=== PATIENT | female | born 1975 | race African-American/Black ===

== ENCOUNTER 2019-10-15 17:02 | Emergency (ER) | payer SELFPAY ==
[~2019-10-15] VITALS: Ht 152.4 cm; Wt 90.9 kg
[~2019-10-15 17:02] MED LIST: ALPR0.254 PO; DIPH25CA58 PO
--- NOTE | 2019-10-15 17:22 | PHYS DOC ---
Past History Past Medical History: Anemia, Anxiety, Other Past Surgical History: Tonsillectomy Alcohol Use: None Drug Use: None General Adult HPI: HPI: "..I ve been having bad periods.. and eventually I started using a cup...but I cut the tip off...and now I can't get it out..." Patient is a 43 year old female who presents with above hx and complaints of retained cervical cup she was using to collect menstruation. Patient modified the plastic cup by cutting off the retraction tip. Now the object has become stuck and inverted. Patient is complaining of increased abdomen pain. Patient gives a history of increased vaginal bleeding. Patient also giving a history of problems with defecation and urination. Patient gives history of increased fatigue. Patient does not follow-up with her primary care. Patient denies any history of STDs. Has had only only 2 sex partners in her life. Patient complains of generalized abdomen discomfort. Patient denies any trauma. No recent travel. No specific ill contacts. Review of Systems: Review of Systems: Constitutional: Denies fever or chills . Complains of increased fatigue Eyes: Denies change in visual acuity HENT: Denies nasal congestion or sore throat Respiratory: Denies cough or shortness of breath Cardiovascular: Denies chest pain or edema GI: Complains of abdominal pain, nausea,. Complains of constipation. Denies vomiting, bloody stools or diarrhea . Complains of retained foreign body in vaginal area. : Complains of frequent small urinations Musculoskeletal: Denies back pain or joint pain Integument: Denies rash Neurologic: Denies headache, focal weakness or sensory changes Endocrine: Denies polyuria or polydipsia Lymphatic: Denies swollen glands Psychiatric: Denies depression or anxiety Heart Score: HEART Score for Chest Pain: HEART Score for Chest Pain Response (Comments) Value History Slighlty/Non-Suspicious 0 ECG Nonspecific Repolarizatio 1 Age < 45 0 Risk Factors 1 or 2 Risk Factors 1 Troponin < Normal Limit 0 Total 2 Risk Factors: Risk Factors: DM, Current or recent (<one month) smoker, HTN, HLP, family his tory of CAD, obesity. Risk Scores: Score 0 - 3: 2.5% MACE over next 6 weeks - Discharge Home Score 4 - 6: 20.3% MACE over next 6 weeks - Admit for Clinical Observation Score 7 - 10: 72.7% MACE over next 6 weeks - Early Invasive Strategies Family History: Family History: Noncontributory Current Medications: Current Meds: See nursing for home meds Allergies: Allergies: Allergies Coded Allergies Type Severity Reaction Last Updated Verified No Known Drug Allergies 09/15/14 No Physical Exam: PE: Constitutional: Moderate acute distress, non-toxic appearance. [] HENT: Normocephalic, atraumatic, bilateral external ears normal, oropharynx moist, no oral exudates, nose normal. [] Eyes: PERRLA, EOMI, conjunctiva pale, no discharge. [] Neck: Normal range of motion, no tenderness, supple, no stridor. [] Cardiovascular: Tachycardia heart rate regular rhythm, no murmur [] Lungs & Thorax: Bilateral breath sounds equal apex on auscultation . Bibasilar crackles Abdomen: Bowel sounds decreased , soft, generalized abdomen tenderness, obvious large masses, no pulsatile masses. Distended. Rebound pain in the lower pelvic area. On pelvic exam patient had obvious mass pressing onto pelvic floor. Had a retained blue plastic cervical cup. Patient had obvious vaginal distortion. Cultures were taken. Eventually the plastic cervical cup was retrieved by forceps. Rectal exam minimal stool. Skin: Warm, dry, no erythema, no rash. Pale. Multiple small scarred areas from microtrauma Back: No tenderness, no CVA tenderness. [] Extremities: No tenderness, no cyanosis, no clubbing, ROM intact, no edema. Mild bilateral psoas sign Neurologic: Alert and oriented X 3, normal motor function, normal sensory function, no focal deficits noted. [] Psychologic: Affect anxious, judgement normal, mood normal. [] EKG: EKG: My interpretation EKG shows a sinus tachycardia 107 bpm. No findings of acute STEMI or contralateral changes [] Radiology/Procedures: Radiology/Procedures: [][address] [address] IMAGING REPORT Signed PATIENT: SHILPA DICK ACCOUNT: [id number] : 1975 LOCATION: ER AGE: 43 SEX: F EXAM STATUS: REG ER ORD. PHYSICIAN: AMANUEL BROWN MD REASON: Pelvic discomfort, vaginal foreign body, possibly period cup PROCEDURE: CT ABDOMEN PELVIS WO CONTRAST CT abdomen pelvis without contrast dated 10/15/2019. No comparison available. CLINICAL INDICATION: Pelvic discomfort and vaginal foreign body. TECHNIQUE: Contiguous axial imaging the abdomen pelvis performed without the administration of IV or oral contrast. One or more of the following individualized dose reduction techniques were utilized for this examination: 1. Automated exposure control 2. Adjustment of the mA and/or kV according to patient size 3. Use of iterative reconstruction technique FINDINGS: Marked heterogeneous nodular enlargement of the uterus which measures approximately 16.5 x 24.9 x 28.4 cm there are scattered calcifications with areas of nodularity throughout. No infiltrative margins are noted. Uterus compresses the urinary bladder anteriorly. The cervix is also displaced anteriorly. No definite foreign body. Limited images of lung bases are clear. Heart size within normal limits. No pleural or pericardial effusion. Solid abdominal viscera not well evaluated in the absence of contrast material. No apparent attenuation abnormality of the liver or spleen. Pancreas, adrenal glands and kidneys are unremarkable. No stone or hydronephrosis. Gallbladder unremarkable. Unopacified GI tract normal in caliber and contour. No focal bowel wall thickening. No inflammatory stranding in the mesentery. The appendix is normal in caliber. No ascites. No retroperitoneal lymphadenopathy. There are mildly enlarged bilateral iliac chain and inguinal lymph nodes measuring up to 1.2 cm short axis. Bone windows show no acute findings. IMPRESSION: 1. Massive fibroid uterus. No definite evidence for underlying malignancy, although this cannot be completely excluded. Surgical consultation and/or continued follow-up imaging to ensure stability. 2. Mild pelvic lymphadenopathy, nonspecific. 3. Otherwise no acute findings. Electronically signed by: Aries Carballo MD (10/15/2019 7:52 PM) [facility] [place] BY: ARIES CARBALLO MD DATE: 10/15/191951 CC: AMANUEL BROWN MD; PCP,NO ~ [address] [address] IMAGING REPORT Signed PATIENT: SHILPA DICK ACCOUNT: [id number] : 1975 LOCATION: ER AGE: 43 SEX: F EXAM STATUS: REG ER ORD. PHYSICIAN: AMANUEL BROWN MD REASON: Pelvic discomfort, vaginal foreign body, possibly period cup PROCEDURE: CT ABDOMEN PELVIS WO CONTRAST CT abdomen pelvis without contrast dated 10/15/2019. No comparison available. CLINICAL INDICATION: Pelvic discomfort and vaginal foreign body. TECHNIQUE: Contiguous axial imaging the abdomen pelvis performed without the administration of IV or oral contrast. One or more of the following individualized dose reduction techniques were utilized for this examination: 1. Automated exposure control 2. Adjustment of the mA and/or kV according to patient size 3. Use of iterative reconstruction technique FINDINGS: Marked heterogeneous nodular enlargement of the uterus which measures approximately 16.5 x 24.9 x 28.4 cm there are scattered calcifications with areas of nodularity throughout. No infiltrative margins are noted. Uterus compresses the urinary bladder anteriorly. The cervix is also displaced anteriorly. No definite foreign body. Limited images of lung bases are clear. Heart size within normal limits. No pleural or pericardial effusion. Solid abdominal viscera not well evaluated in the absence of contrast material. No apparent attenuation abnormality of the liver or spleen. Pancreas, adrenal glands and kidneys are unremarkable. No stone or hydronephrosis. Gallbladder unremarkable. Unopacified GI tract normal in caliber and contour. No focal bowel wall thickening. No inflammatory stranding in the mesentery. The appendix is normal in caliber. No ascites. No retroperitoneal lymphadenopathy. There are mildly enlarged bilateral iliac chain and inguinal lymph nodes measuring up to 1.2 cm short axis. Bone windows show no acute findings. IMPRESSION: 1. Massive fibroid uterus. No definite evidence for underlying malignancy, although this cannot be completely excluded. Surgical consultation and/or continued follow-up imaging to ensure stability. 2. Mild pelvic lymphadenopathy, nonspecific. 3. Otherwise no acute findings. Electronically signed by: Aries Carballo MD (10/15/2019 7:52 PM) [facility] [place] BY: ARIES CARBALLO MD DATE: 10/15/191951 CC: AMANUEL BROWN MD; PCP,NO ~ Course & Med Decision Making: Course & Med Decision Making Pertinent Labs and Imaging studies reviewed. (See chart for details) Continue pad counts. Follow up with primary and soa architect. Follow up pending cultures. Follow-up COVID results. Take a daily multivitamin with iron. Must follow-up for very large uterine masses. Must follow-up pending cultures. Must obtain a primary care physician. Must follow-up with NURSERY NURSE . Advised patient most likely will need either embolizing the large fibroids and/or surgery or both. Must not delay follow-up. May have neoplastic or carcinogenic changes of the large masses with the findings of the pelvic adenopathy Consider Dr. Mckeon [phone] and Senia Kent NURSERY NURSE [phone] Return if any concerns. Impression: 1.Foreign Body Lodged in Vaginal 2.Massive Fibroids Uterus with pelvic adenopathy 3.Microcytic, Hypochromic Anemia ( Hgb 7.6, MCV62, MCH 18, Plate. 681) 4.Elevated Creat. 1.2 5. DM 119 [] Dragon Disclaimer: Dragon Disclaimer: This electronic medical record was generated, in whole or in part, using a voice recognition dictation system. Departure Departure: Disposition: 01 HOME/RESIDENCE PRIOR TO ADM Condition: STABLE Referrals: PCP,NO (PCP) Justification of Admission: Justification of Admission: Justification of Admission Dx: N/A Dragon Disclaimer This chart was dictated in whole or in part using Voice Recognition software in a busy, high-work load, and often noisy Emergency Department environment. It may contain unintended and wholly unrecognized errors or omissions. Dragon Disclaimer This chart was dictated in whole or in part using Voice Recognition software in a busy, high-work load, and often noisy Emergency Department environment. It may contain unintended and wholly unrecognized errors or omissions. AMANUEL BROWN MD Oct 15, 2019 17:21
[2019-10-15 18:38] LABS: COLOR,URINE AMBER
[2019-10-15 18:39] LABS: AMORPHOUS SEDIMENT,UR PRESENT /HPF; BACTERIA,URINE 0 /HPF (0-FEW); BILIRUBIN,URINE NEG (NEG); CLARITY,URINE HAZY; GLUCOSE,URINE NEG (NEG); NITRITE,URINE NEG (NEG); SQUAMOUS EPITHELIAL CELL,UR FEW /LPF; UROBILINOGEN,URINE 0.2 mg/dL (0.2 mg/dL); WBC,URINE OCC /HPF (0-4)
[2019-10-15 18:41] LABS: BARBITURATES NEG (NEG); BENZODIAZEPINES NEG (NEG); CANNABINOIDS NEG (NEG); COCAINE NEG (NEG); METHADONE NEG (NEG); OPIATES NEG (NEG); PHENCYCLIDINE NEG (NEG)
[2019-10-15 18:45] LABS: AMPHETAMINE/METHAMPHETAMINE NEG (NEG)
[2019-10-15] MEDS ORDERED: IV RINGERS SOLUTION,LACTATED 1,000 ML IV SCH (18:49)
[2019-10-15] MEDS ORDERED: KETOROLAC 30 MG/ML VIAL. IVP ONE (19:00)
[2019-10-15 19:16] LABS: U PREG PATIENT NEGATIVE (NEG)
--- NOTE | 2019-10-15 19:43 | EKG ---
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
--- NOTE | 2019-10-15 19:55 | RAD ---
Acute abdominal series to include a PA chest radiograph 10/15/2019 Clinical History: Pelvic discomfort. A PA digital radiograph of the chest was obtained. Supine and erect AP digital radiographs of the abdomen/pelvis were obtained. No previous studies are available for comparison. The cardiac and mediastinal silhouettes are within normal limits in size and configuration. No pulmonary infiltrate is seen. No pleural effusion or pneumothorax is noted. The abdominal bowel gas pattern is nonobstructive. There is no evidence of free air. No radiopaque calculus is seen. Calcifications are seen within the pelvis consistent with phleboliths. There is suggestion of a large mass within the within the mid/lower abdomen. The osseous structures are grossly intact. IMPRESSION: 1. Nonobstructive bowel gas pattern. 2. Suggestion of a large mass involving the mid/lower abdomen. Electronically signed by: Paco Ram MD (10/15/2019 7:52 PM) [id number]
--- NOTE | 2019-10-15 19:55 | RAD ---
CT abdomen pelvis without contrast dated 10/15/2019. No comparison available. CLINICAL INDICATION: Pelvic discomfort and vaginal foreign body. TECHNIQUE: Contiguous axial imaging the abdomen pelvis performed without the administration of IV or oral contrast. One or more of the following individualized dose reduction techniques were utilized for this examination: 1. Automated exposure control 2. Adjustment of the mA and/or kV according to patient size 3. Use of iterative reconstruction technique FINDINGS: Marked heterogeneous nodular enlargement of the uterus which measures approximately 16.5 x 24.9 x 28.4 cm there are scattered calcifications with areas of nodularity throughout. No infiltrative margins are noted. Uterus compresses the urinary bladder anteriorly. The cervix is also displaced anteriorly. No definite foreign body. Limited images of lung bases are clear. Heart size within normal limits. No pleural or pericardial effusion. Solid abdominal viscera not well evaluated in the absence of contrast material. No apparent attenuation abnormality of the liver or spleen. Pancreas, adrenal glands and kidneys are unremarkable. No stone or hydronephrosis. Gallbladder unremarkable. Unopacified GI tract normal in caliber and contour. No focal bowel wall thickening. No inflammatory stranding in the mesentery. The appendix is normal in caliber. No ascites. No retroperitoneal lymphadenopathy. There are mildly enlarged bilateral iliac chain and inguinal lymph nodes measuring up to 1.2 cm short axis. Bone windows show no acute findings. IMPRESSION: 1. Massive fibroid uterus. No definite evidence for underlying malignancy, although this cannot be completely excluded. Surgical consultation and/or continued follow-up imaging to ensure stability. 2. Mild pelvic lymphadenopathy, nonspecific. 3. Otherwise no acute findings. Electronically signed by: Aries Carballo MD (10/15/2019 7:52 PM) [facility]
[2019-10-15 19:56] LABS: CALCIUM 9.2 mg/dL (8.5-10.1); CREATININE 1.2 mg/dL (0.6-1.0); GFR 59.6; POTASSIUM 3.5 mmol/L (3.5-5.1)
[2019-10-15 20:03] LABS: DIRECT BILIRUBIN 0.1 mg/dL (0.0-0.2); TOTAL BILIRUBIN 0.3 mg/dL (0.2-1.0); TOTAL PROTEIN 9.1 g/dL (6.4-8.2)
[2019-10-15 20:04] LABS: BASO # 0.1 x10^3/uL (0.0-0.2); BASO % 1 % (0-3); EOS # 0.1 x10^3/uL (0.0-0.7); EOS % 1 % (0-3); HEMATOCRIT 26.3 % (36.0-47.0); HEMOGLOBIN 7.6 g/dL (12.0-15.5); LYMPH # 1.3 x10^3/uL (1.0-4.8); LYMPH % 16 % (24-48); MEAN CORPUSCULAR HEMOGLOBIN 18 pg (25-35); MEAN CORPUSCULAR HGB CONC 29 g/dL (31-37); MEAN CORPUSCULAR VOLUME 62 fL (79-100); MONO # 0.4 x10^3/uL (0.0-1.1); MONO % 6 % (0-9); NEUT % 76 % (31-73); PLATELET COUNT 681 x10^3/uL (140-400); RED BLOOD COUNT 4.21 x10^6/uL (3.50-5.40); RED CELL DISTRIBUTION WIDTH 18.3 % (11.5-14.5); WHITE BLOOD COUNT 7.8 x10^3/uL (4.0-11.0)
[2019-10-15 21:04] LABS: PLT ESTIMATE INCREASED (ADEQUATE)
[2019-10-15 21:05] LABS: ANISOCYTOSIS PRESENT; HYPOCHROMIA PRESENT; MICROCYTOSIS PRESENT; OVALOCYTES FEW; POLYCHROMASIA PRESENT; TEAR DROP CELLS OCC
[2019-10-15 21:45] VITALS: BP 154/95
[2019-10-16 23:06] LABS: CHLAMYDIA PROBE Negative (Negative)
== END 2019-10-15 21:50 | disposition home or self-care (01) ==
LOC: ER 17:02
DX: T19.2XXA Foreign body in vulva and vagina, initial encounter (principal); D25.9 Leiomyoma of uterus, unspecified; R59.0 Localized enlarged lymph nodes; D50.9 Iron deficiency anemia, unspecified; R79.89 Other specified abnormal findings of blood chemistry; E11.9 Type 2 diabetes mellitus without complications; R10.84 Generalized abdominal pain; Z03.818 Encounter for observation for suspected exposure to other biological agents ruled out; Z86.2 Personal history of diseases of the blood and blood-forming organs and certain disorders involving the immune mechanism; X58.XXXA Exposure to other specified factors, initial encounter; Y93.89 Activity, other specified; Y92.89 Other specified places as the place of occurrence of the external cause; Y99.8 Other external cause status
CPT/HCPCS: 36415; 74022; 74176; 80048; 80061; 80076; 80307; 81001; 81025; 82550; 83690; 84484; 84702; 85025; 85610; 85730; 87086; 87491; 87591; 93005; 96361; 96374; 99285; J1885; J7120; U0003

== ENCOUNTER 2021-06-09 20:21 | Emergency (ER) | payer SELFPAY ==
[~2021-06-09] VITALS: Ht 152.4 cm; Wt 96.3 kg
[2021-06-09 20:31] VITALS: BP 161/101
--- NOTE | 2021-06-09 21:55 | PHYS DOC ---
Past History Past Medical History: Anemia, Anxiety, Other (KAREN BEY APRN) Past Surgical History: Tonsillectomy (KAREN BEY APRN) Alcohol Use: None Drug Use: None (KAREN BEY APRN) General Adult EDM: Chief Complaint: FOREIGN BODY VAGINA HPI: HPI: Patient is a 45-year-old female who presents with menstrual cup stuck in her vagina. Patient states that she has been trying to get it out herself at home but unsuccessful. No pelvic or abdominal pain. Denies abnormal odor or discharge. History of anxiety and anemia. (KAREN BEY APRN) Review of Systems: Review of Systems: ROS At least 10 ROS systems have been reviewed and are negative except as documented in the HPI. General: Negative except as outlined in HPI above. Skin: Negative except as outlined in HPI above. HEENT: Negative except as outlined in HPI above. Neck: Negative except as outlined in HPI above. Respiratory: Negative except as outlined in HPI above.. Cardiovascular: Negative except as outlined in HPI above. Abdomen: Negative except as outlined in HPI above. : Negative except as outlined in HPI above. Back/MSK: Negative except as outlined in HPI above. Neuro: Negative except as outlined in HPI above. Psych: Negative except as outlined in HPI above. (KAREN BEY APRN) Allergies: Allergies: Allergies Coded Allergies Type Severity Reaction Last Updated Verified No Known Drug Allergies 06/09/21 No (KAREN BEY APRN) Physical Exam: PE: Constitutional: Well developed, well nourished, no acute distress, non-toxic appearance. [] HENT: Normocephalic, atraumatic, bilateral external ears normal, oropharynx moist, no oral exudates, nose normal. [] Eyes: PERRLA, EOMI, conjunctiva normal, no discharge. [] Neck: Normal range of motion, no tenderness, supple, no stridor. [] Cardiovascular:Heart rate regular rhythm, no murmur [] Lungs & Thorax: Bilateral breath sounds clear to auscultation [] Abdomen/vaginal: Bowel sounds normal, soft, no tenderness. Menstrual cup inside vagina. No odor, no tenderness Skin: Warm, dry, no erythema, no rash. [] Back: No tenderness, no CVA tenderness. [] Extremities: No tenderness, no cyanosis, no clubbing, ROM intact, no edema. [] Neurologic: Alert and oriented X 3, normal motor function, normal sensory function, no focal deficits noted. [] Psychologic: Affect normal, judgement normal, mood normal. [] (KAREN BEY APRN) Current Patient Data: Vital Signs: Vital Signs Date Time Temp Pulse Resp B/P (MAP) Pulse Ox O2 Delivery O2 Flow Rate FiO2 06/09/21 20:31 99.5 118 18 161/101 (121) 100 (KAREN BEY APRN) EKG: EKG: [] (KAREN BEY APRN) Radiology/Procedures: Radiology/Procedures: [] (KAREN BEY APRN) Heart Score: C/O Chest Pain: No Risk Factors: Risk Factors: DM, Current or recent (<one month) smoker, HTN, HLP, family history of CAD, obesity. Risk Scores: Score 0 - 3: 2.5% MACE over next 6 weeks - Discharge Home Score 4 - 6: 20.3% MACE over next 6 weeks - Admit for Clinical Observation Score 7 - 10: 72.7% MACE over next 6 weeks - Early Invasive Strategies (KAREN BEY APRN) Course & Med Decision Making: Course & Med Decision Making Pertinent Labs and Imaging studies reviewed. (See chart for details) [] 45-year-old female presents with a menstrual cup stuck in her vagina. Patient's been trying to remove at home but unsuccessful. Upon vaginal exam unable to visualize the menstrual cup or the cervix. I was able to feel the menstrual cup on physical exam. Unable to see it to remove. Discussed with Dr. De León. Dr. De León also attempted on physical exam to visualize the menstrual cup and was unsuccessful. Advised patient she would need to follow-up with ASSESSMENT TECHNICIAN or return to the ER. Discussed return precautions. Patient verbalizes understanding. Patient states that she will follow-up with OB tomorrow. (KAREN BEY APRN) Dragon Disclaimer: Dragrich Disclaimer: This electronic medical record was generated, in whole or in part, using a voice recognition dictation system. (KAREN BEY APRN) Attending Co-Sign The patient was seen and interviewed as well as examined at the bedside. The chart was reviewed. The case was discussed. Agree with the plan of care. (NICHOLAS DE LEÓN DO) Departure Departure: Impression: Primary Impression: Foreign body in vagina Qualified Codes: T19.2XXA - Foreign body in vulva and vagina, initial encounter Disposition: HOME / SELF CARE / HOMELESS Condition: STABLE Referrals: PCP,NO (PCP) Patient Instructions: Vaginal Foreign Body, [id number] Additional Instructions: You are seen in the emergency room for menstrual cup stuck in your vagina. We were unsuccessful at removing the cup. You need to follow-up with [facility] for further management. If you are unable to get into a [facility] tomorrow you need to go to the emergency room where they will have better tools to help remove the menstrual cup. EMERGENCY DEPARTMENT GENERAL DISCHARGE INSTRUCTIONS Thank you for coming to [facility] (ED) today and trusting us with you care. We trust that you had a positivie experience in our Emergency Department. If you wish to speak to the department management, you may call the director at [phone]. YOUR FOLLOW UP INSTRUCTIONS ARE FOLLOWS: 1. Do you have a private Doctor? If you do not have a private doctor, please ask for a resource list of physicians or clinics that may be able to assist you with follow up care. 2. The Emergency Physician has interpreted your x-rays. The X-Ray specialist will also review them. If there is a change in the findings, you will be notified in 48 hours when at all possible. 3. A lab test or culture has been done, your results will be reviewed and you will be notified if you need a change in treatment. ADDITIONAL INSTRUCTIONS AND INFORMATION: 1. Your care today has been supervised by a physician who is specially trained in emergency care. Many problems require more than one evaluation for a complete diagnosis and treatment. We recommend that you schedule your follow up appointment as recommended to ensure complete treatment of you illness or injury. If you are unable to obtain follow up care and continue to have a problem, or if your condition worsens, we recommend that you return to the ED. 2. We are not able to safely determine your condition over the phone nor are we able to give sound medical advice over the phone. For these safety reasons, if you call for medical advice we will ask you to come to the ED for further evaluation. 3. If you have any questions regarding these discharge instructions please call the ED at [phone]. SAFETY INFORMATION: In the interest of safety, wellness, and injury prevention; we encourage you to wear your sealbelt, if you smoke; quite smoking, and we encourage family to use a protective helmet for bicycling and other sporting events that present an increased risk for head injury. IF YOUR SYMPTOMS WORSEN OR NEW SYMPTOMS DEVELOP, OR YOU HAVE CONCERNS ABOUT YOUR CONDITION; OR IF YOUR CONDITION WORSENS WHILE YOU ARE WAITING FOR YOUR FOLLOW UP APPOINTMENT; EITHER CONTACT YOUR PRIMARY CARE DOCTOR, THE PHYSICIAN WHOSE NAME AND NUMBER YOU WERE GIVEN, OR RETURN TO THE ED IMMEDIATELY. KAREN BEY APRN Jun 09, 2021 21:55 NICHOLAS DE LEÓN DO Jun 10, 2021 05:28
== END 2021-06-09 22:10 | disposition home or self-care (01) ==
LOC: ER 20:21
DX: T19.2XXA Foreign body in vulva and vagina, initial encounter (principal); Z86.2 Personal history of diseases of the blood and blood-forming organs and certain disorders involving the immune mechanism; X58.XXXA Exposure to other specified factors, initial encounter; Y93.89 Activity, other specified; Y92.89 Other specified places as the place of occurrence of the external cause; Y99.8 Other external cause status
CPT/HCPCS: 99284